=== PATIENT | male | born 1970 | race Caucasian/White ===

== ENCOUNTER 2018-02-26 14:30 | Emergency (ER) | payer OTHER ==
[~2018-02-26] VITALS: Ht 172.7 cm; Wt 74.8 kg
[2018-02-26 15:00] LABS: EOSINOPHILS % (AUTO) 4.5 % (0.0-6.0); HEMATOCRIT 40 % (39-51); LYMPHOCYTES % (AUTO) 34.7 % (20.0-44.0); MEAN CORPUSCULAR HEMOGLOBIN 32 PG (26.0-33.0); MEAN CORPUSCULAR HGB CONC 35 g/dl (31.0-36.0); MEAN CORPUSCULAR VOLUME 92 fL (80-96); MONOCYTES % (AUTO) 7.6 % (2.0-12.0); NEUTROPHILS % (AUTO) 52.2 % (43.0-81.0); PLATELET COUNT (AUTO) 117 /CMM (150-450); RDW COEFFICIENT OF VARIATION 13.8 (11.5-15.0); RED BLOOD CELL COUNT(AUTO) 4.34 MIL/uL (4.5-6.0); WHITE BLOOD COUNT (AUTO) 4.2 K/uL (4.3-11.0)
[2018-02-26] MEDS ORDERED: IV NS 0.9% 1,000 ML BAG IV ONE (15:00)
--- NOTE | 2018-02-26 15:00 | NUR ---
[facility] S/P POSSIBLE OVERDOSE ON VISTARIL AND ETOH. PATIENT IS AWAKE AND ALERT,. NOT IN DISTRESS. SKIN IS WARM TO TOUCH AND NON DIAPHORETIC. PATIENT IS AFEBRILE. VSS
[2018-02-26 15:01] LABS: LYMPHOCYTES # (AUTO) 1.5 /CMM (0.8-4.8); MONOCYTES # (AUTO) 0.3 /CMM (0.1-1.30); NEUTROPHILS # (AUTO) 2.2 /CMM (1.8-8.9)
[2018-02-26 15:32] LABS: CALCIUM, SERUM 7.9 mg/dL (8.5-10.1); CREATININE 0.7 mg/dL (0.6-1.3); POTASSIUM 3.7 mmol/L (3.5-5.1)
--- NOTE | 2018-02-26 17:04 | NUR ---
Patient is resting comfortably in bed with eyes closed. Easily aroused. VSS
--- NOTE | 2018-02-26 18:05 | NUR ---
IV ACCESS REMAINS INTACT ON LAC 20
--- NOTE | 2018-02-26 18:05 | NUR ---
Patient is resting comfortably in bed with eyes closed. Easily aroused. VSS
--- NOTE | 2018-02-26 18:12 | NUR ---
Patient is resting comfortably in bed with eyes closed. Easily aroused. VSS
--- NOTE | 2018-02-26 19:10 | NUR ---
REPORT RECEIVED FROM PIYUSH HUYNH FOR DARRYN.
--- NOTE | 2018-02-26 19:13 | NUR ---
REPORT GIVEN TO PIYUSH GRAVES
--- NOTE | 2018-02-26 22:13 | NUR ---
IV removed. Catheter intact and site benign. Pressure and 4x4 applied to site. No bleeding noted. Patient discharged to home in stable condition. Written and verbal after care instructions given. Patient verbalizes understanding of instruction. Patient is awake and alert to self, day, and place. Patient ambulatory with a steady gait.
[2018-02-26 22:14] VITALS: BP 119/74
== END 2018-02-26 22:15 | disposition home or self-care (01) ==
LOC: ER 14:32
DX: T51.8X1A Toxic effect of other alcohols, accidental (unintentional), initial encounter (principal); F32.9 Major depressive disorder, single episode, unspecified; Y92.89 Other specified places as the place of occurrence of the external cause
CPT/HCPCS: 36415; 80048-TC; 85025-TC; A4606; J7030; Z7610

== ENCOUNTER 2018-10-26 16:16 | Emergency (ER) | payer OTHER ==
[~2018-10-26] VITALS: Ht 172.7 cm; Wt 113.4 kg
[~2018-10-26 16:16] MED LIST: FOLI1TAB16 PO; THIA100T13 PO
--- NOTE | 2018-10-26 16:18 | NUR ---
OPAL, FOUND HIM STANDING IN THE MIDDLE OF THE STREET. TOOKN 30-40CAPS OF GABAPENTIN, TO ER BED 15, HOOKED TO MONITOR, AWAITING MD PATRICIA
--- NOTE | 2018-10-26 16:18 | NUR ---
DR VILLANUEVA AT BEDSIDE
[2018-10-26] MEDS ORDERED: diphenhydrAMINE HCL 50 MG/ML VIAL IV ONE (16:30)
[2018-10-26] MEDS ORDERED: LORAZEPAM INJ 2 MG/ML VIAL IVP ONE (16:30)
[2018-10-26] MEDS ORDERED: HALOPERIDOL LACTATE INJ 5 MG/ML VIAL IM ONE (16:30)
[2018-10-26] MEDS ORDERED: IV NS 0.9% 1,000 ML BAG IV ONE (16:30)
[2018-10-26 16:40] LABS: BASOPHILS % (AUTO) 0.8 % (0.0-2.0); EOSINOPHILS % (AUTO) 1.6 % (0.0-6.0); HEMATOCRIT 49 % (39-51); HEMOGLOBIN 16.6 g/dL (13.5-17.5); LYMPHOCYTES # (AUTO) 1.7 /CMM (0.8-4.8); LYMPHOCYTES % (AUTO) 40.9 % (20.0-44.0); MEAN CORPUSCULAR HGB CONC 34 g/dl (31.0-36.0); MEAN CORPUSCULAR VOLUME 98 fL (80-96); MONOCYTES # (AUTO) 0.4 /CMM (0.1-1.30); MONOCYTES % (AUTO) 9.4 % (2.0-12.0); NEUTROPHILS % (AUTO) 47.3 % (43.0-81.0); PLATELET COUNT (AUTO) 186 /CMM (150-450); RED BLOOD CELL COUNT(AUTO) 5.05 MIL/uL (4.5-6.0); WHITE BLOOD COUNT (AUTO) 4.1 K/uL (4.3-11.0)
[2018-10-26] MEDS ORDERED: diphenhydrAMINE HCL 50 MG/ML VIAL ONE (16:42)
[2018-10-26] MEDS ORDERED: HALOPERIDOL LACTATE INJ 5 MG/ML VIAL ONE (16:42)
[2018-10-26] MEDS ORDERED: LORAZEPAM INJ 2 MG/ML VIAL ONE (16:43)
[2018-10-26 16:50] LABS: CALCIUM, SERUM 8.3 mg/dL (8.5-10.1); CARBON DIOXIDE 24 mmol/L (21-32); CHLORIDE 105 mmol/L (98-107); CREATININE 0.7 mg/dL (0.6-1.3); GLUCOSE 99 mg/dL (74-106); POTASSIUM 3.5 mmol/L (3.5-5.1); SODIUM SERUM 143 mmol/L (136-145); UREA NITROGEN, BLOOD 10 mg/dL (7-18)
[2018-10-26 17:01] LABS: ALANINE AMINOTRANSFERASE 32 U/L (12-78); ALBUMIN 3.9 g/dL (3.4-5.0); ALCOHOL, BLOOD 372 mg/dL (0-0); ALKALINE PHOSPHATASE 50 U/L (46-116); ASPARTATE AMINOTRANSFERASE 31 U/L (15-37); BILIRUBIN,DIRECT 0.1 mg/dL (0.0-0.2); BILIRUBIN,TOTAL 0.2 mg/dL (0.2-1.0); TOTAL PROTEIN, SERUM 7.6 g/dL (6.4-8.2)
[2018-10-26 17:02] LABS: ACETAMINOPHEN < 2 ug/ml (10-30); SALICYLATE < 2.8 mg/dL (2.8-20.0)
[2018-10-26 17:17] LABS: CREATINE KINASE, TOTAL 252 U/L (39-308)
[2018-10-26 17:42] LABS: APPEARANCE,URINE Clear (CLEAR); BILIRUBIN,URINE Negative (NEGATIVE); BLOOD, URINE Negative Ery/uL (NEGATIVE); COLOR,URINE Yellow (YELLOW); KETONES,URINE Trace (NEGATIVE); LEUKOCYTE ESTERASE ,URINE Negative (NEGATIVE); NITRITE, URINE Negative (NEGATIVE); PROTEIN,URINE Negative (NEGATIVE); UGLUCOSE Negative (NEGATIVE); UROBILINOGEN,URINE 0.2 EU/dL (0.2)
[2018-10-26 17:58] LABS: BACTERIA,URINE Few /HPF (None Seen); RBC,URINE 0-2 /HPF (0-2); SQUAMOUS EPITHELIAL CELL,UR Few /HPF (None Seen); WBC,URINE 0-2 /HPF (0-3)
--- NOTE | 2018-10-26 18:00 | NUR ---
PT COMFORTABLY ASLEEP IN BED, HOOKED TO MONITOR, WILL CONT TO MONIOTR
--- NOTE | 2018-10-26 18:30 | NUR ---
PT SNORING, STILL ASLEEP, PT SHOWING SIGNS OF SLEEP APNEA, MADE MD AWARE. MD ORDERED VENTI MASK AT 40%, OXYGEN @ 12LPM. HOB ELEVATED AT 45 DEGREES. KEPT COMFORTABLE. SITTER AT BEDSIDE
--- NOTE | 2018-10-26 19:22 | NUR ---
PT STILL ASLEEP. SNORING LOUDLY. HOB KEPT ELEVATED. SITTER AT BEDSIDE. HOOKED TO [facility]. SITTER AT BEDSIDE.
--- NOTE | 2018-10-26 22:50 | NUR ---
PT ASLEEP. SNORING LOUDLY. ON VENTI MASK 40% 12LPM OXYGEN. HOB KEPT ELEVATED. SITTER AT BEDSIDE. HOOKED TO MONITOR.
--- NOTE | 2018-10-26 23:46 | NUR ---
PT STILL ASLEEP. SNORING LOUDLY. ON VENTI MASK AT 40%, 12 LPM OF OXYGEN. HOB KEPT ELEVATED. SITTER AT BEDSIDE. [facility] WILL CONTINUE TO MONITOR.
--- NOTE | 2018-10-27 00:06 | NUR ---
PT AWAKE, A&O x 4, MADE MD AWARE.
--- NOTE | 2018-10-27 00:18 | NUR ---
DR BARNES AT BEDSIDE
--- NOTE | 2018-10-27 00:20 | NUR ---
TOVA ANTONIO AT BEDSIDE FOR EVAL.
--- NOTE | 2018-10-27 00:39 | NUR ---
PROVIDED WITH SANDWICH AND WATER, PT TOLERATING PO WELL
--- NOTE | 2018-10-27 00:45 | NUR ---
PT ABLE TO SIT AT BEDSIDE. PT NOT ABLE TO STAND UP ALONE. ALSO FEELING NAUSEOUS WHEN TRIES TO STAND UP. MADE MD AWARE.
--- NOTE | 2018-10-27 01:14 | NUR ---
PT WENT TO THE RESTROOM, UNSTEADY GAIT, FEELING DIZZY WHILE AMBULATING, SITTER BEHIND FOR SUPPORT. MADE AWARE
--- NOTE | 2018-10-27 02:22 | NUR ---
PT ASLEEP IN BED,EASILY AROUSABLE BY VOICE. HOOKED TO [employer]. O2 SATURATION AT 95%.
--- NOTE | 2018-10-27 02:25 | NUR ---
REPORT GIVEN TO VIDAL PICKETT FOR DARRYN
--- NOTE | 2018-10-27 02:41 | NUR ---
PT PLACED ON 6L SIMPLE MASK. Patient is resting comfortably in bed with eyes closed. Easily aroused.
[2018-10-27] MEDS ORDERED: LORAZEPAM INJ 2 MG/ML VIAL IV ONE (03:00)
[2018-10-27] MEDS ORDERED: LORAZEPAM INJ 2 MG/ML VIAL ONE (03:00)
[2018-10-27] MEDS ORDERED: IV D5/ 0.9% NACL 1,000 ML IV ONE (03:02)
--- NOTE | 2018-10-27 04:20 | NUR ---
Patient is resting comfortably in bed with eyes closed. Easily aroused.
[2018-10-27 05:05] VITALS: BP 115/58
--- NOTE | 2018-10-27 05:11 | NUR ---
PT AOX4 AMBULATORY WITH STEADY GAIT. PT TO [facility]. NOTIFIED.
--- NOTE | 2018-10-27 05:29 | NUR ---
IV removed. Catheter intact and site benign. Pressure and 4x4 applied to site. No bleeding noted.Patient discharged to home in stable condition. Written and verbal after care instructions given. Patient verbalizes understanding of instruction. PT AMBULATORY WITH STEADY GAIT.
== END 2018-10-27 06:00 | disposition home or self-care (01) ==
LOC: ER 16:17
DX: R45.851 Suicidal ideations (principal); F10.129 Alcohol abuse with intoxication, unspecified; I10 Essential (primary) hypertension; Z79.899 Other long term (current) drug therapy
CPT/HCPCS: 36415; 71045-TC; 80048-TC; 80076-TC; 80305; 81000-TC; 82550-TC; 84443-TC; 85025-TC; G0480; J1200; J1630; J2060; J7030; J7042

== ENCOUNTER 2018-11-07 16:13 | Emergency (ER) | payer OTHER ==
[~2018-11-07] VITALS: Ht 177.8 cm; Wt 103.9 kg
--- NOTE | 2018-11-07 16:13 | NUR ---
PT [id number] FROM [address] STRE[address],REPORT STS CALLED 911 AND WANTS TO KILL SELF. PT ADMITS TO TAKE 5 GABAPENTIN W/ VODKA. DENIES SI. PT IS AAOX3, NOT IN RESPIRATORY DISTRESS, HOOKED TO MONITOR, KEPT RESTED AND COMFORTABLE.
--- NOTE | 2018-11-07 16:15 | NUR ---
SEEN AND EXAMINED BY DR. VILLANUEVA.
--- NOTE | 2018-11-07 16:20 | NUR ---
ER PHLEB AT BEDSIDE FOR BLOOD DRAW.
[2018-11-07 16:40] LABS: BASOPHILS # (AUTO) 0.3 /CMM (0.0-0.2); BASOPHILS % (AUTO) 4.3 % (0.0-2.0); EOSINOPHILS % (AUTO) 1.9 % (0.0-6.0); HEMATOCRIT 50 % (39-51); HEMOGLOBIN 17.1 g/dL (13.5-17.5); LYMPHOCYTES # (AUTO) 2.1 /CMM (0.8-4.8); LYMPHOCYTES % (AUTO) 31.7 % (20.0-44.0); MEAN CORPUSCULAR HGB CONC 34 g/dl (31.0-36.0); MEAN CORPUSCULAR VOLUME 99 fL (80-96); MONOCYTES # (AUTO) 0.5 /CMM (0.1-1.30); MONOCYTES % (AUTO) 7.9 % (2.0-12.0); NEUTROPHILS # (AUTO) 3.6 /CMM (1.8-8.9); NEUTROPHILS % (AUTO) 54.2 % (43.0-81.0); PLATELET COUNT (AUTO) 288 /CMM (150-450); WHITE BLOOD COUNT (AUTO) 6.6 K/uL (4.3-11.0)
--- NOTE | 2018-11-07 16:40 | NUR ---
URINAL GIVEN BUT UNABLE TO PROVIDE URINE SPECIMEN.
[2018-11-07 16:50] LABS: CALCIUM, SERUM 8.6 mg/dL (8.5-10.1); CARBON DIOXIDE 25 mmol/L (21-32); CHLORIDE 102 mmol/L (98-107); CREATININE 0.7 mg/dL (0.6-1.3); GLUCOSE 88 mg/dL (74-106); SODIUM SERUM 137 mmol/L (136-145); UREA NITROGEN, BLOOD 10 mg/dL (7-18)
[2018-11-07 16:57] LABS: ALANINE AMINOTRANSFERASE 34 U/L (12-78); ALBUMIN 3.9 g/dL (3.4-5.0); ALCOHOL, BLOOD 333 mg/dL (0-0); ALKALINE PHOSPHATASE 53 U/L (46-116); ASPARTATE AMINOTRANSFERASE 33 U/L (15-37); BILIRUBIN,DIRECT 0.1 mg/dL (0.0-0.2); BILIRUBIN,TOTAL 0.3 mg/dL (0.2-1.0); TOTAL PROTEIN, SERUM 7.7 g/dL (6.4-8.2)
[2018-11-07 16:58] LABS: ACETAMINOPHEN < 10 ug/ml (10-30); SALICYLATE 1.6 mg/dL (2.8-20.0)
[2018-11-07 19:10] LABS: APPEARANCE,URINE Clear (CLEAR); BILIRUBIN,URINE Negative (NEGATIVE); BLOOD, URINE Negative Ery/uL (NEGATIVE); COLOR,URINE Yellow (YELLOW); KETONES,URINE Trace (NEGATIVE); LEUKOCYTE ESTERASE ,URINE Negative (NEGATIVE); NITRITE, URINE Negative (NEGATIVE); PH,URINE 5.5 (5.0-8.0); PROTEIN,URINE 30 mg/dl (NEGATIVE); UGLUCOSE Negative (NEGATIVE); UROBILINOGEN,URINE 0.2 EU/dL (0.2)
[2018-11-07 19:22] LABS: BACTERIA,URINE None seen /HPF (None Seen); RBC,URINE NONE SEEN /HPF (0-2); WBC,URINE NONE SEEN /HPF (0-3)
[2018-11-07 19:23] LABS: MUCUS,URINE Few /LPF (None Seen); SQUAMOUS EPITHELIAL CELL,UR None Seen /HPF (None Seen)
--- NOTE | 2018-11-07 19:51 | NUR ---
PT REFUSED TO SIGN D/C PAPERS; WALKED OUT OF ER, AMBULATORY WITH STEADY GAIT; VSS; NAD NOTED
[2018-11-07 19:52] VITALS: BP 159/89
== END 2018-11-07 19:54 | disposition home or self-care (01) ==
LOC: ER 16:18
DX: F10.129 Alcohol abuse with intoxication, unspecified (principal); I10 Essential (primary) hypertension; Y90.8 Blood alcohol level of 240 mg/100 ml or more
CPT/HCPCS: 36415; 80048; 80076; 80305; 80307; 80329; 81001; 82962; 85025; 99283; G0480; 81000-TC

== ENCOUNTER 2018-11-12 08:24 | Emergency (ER) | payer OTHER ==
[~2018-11-12] VITALS: Ht 177.8 cm; Wt 102.1 kg
[2018-11-12 08:51] LABS: BASOPHILS # (AUTO) 0.1 /CMM (0.0-0.2); BASOPHILS % (AUTO) 1.3 % (0.0-2.0); EOSINOPHILS % (AUTO) 1.4 % (0.0-6.0); HEMATOCRIT 47 % (39-51); HEMOGLOBIN 16.1 g/dL (13.5-17.5); LYMPHOCYTES # (AUTO) 1.3 /CMM (0.8-4.8); LYMPHOCYTES % (AUTO) 24.6 % (20.0-44.0); MEAN CORPUSCULAR HGB CONC 34 g/dl (31.0-36.0); MEAN CORPUSCULAR VOLUME 98 fL (80-96); MONOCYTES # (AUTO) 0.6 /CMM (0.1-1.30); MONOCYTES % (AUTO) 12.1 % (2.0-12.0); NEUTROPHILS # (AUTO) 3.1 /CMM (1.8-8.9); NEUTROPHILS % (AUTO) 60.6 % (43.0-81.0); PLATELET COUNT (AUTO) 179 /CMM (150-450); RED BLOOD CELL COUNT(AUTO) 4.82 MIL/uL (4.5-6.0); WHITE BLOOD COUNT (AUTO) 5.1 K/uL (4.3-11.0)
[2018-11-12] MEDS ORDERED: PANTOPRAZOLE 40 MG VIAL ONE (08:55)
[2018-11-12] MEDS ORDERED: LORAZEPAM INJ 2 MG/ML VIAL ONE (08:56)
[2018-11-12 08:57] LABS: CALCIUM, SERUM 8.1 mg/dL (8.5-10.1); CREATININE 0.8 mg/dL (0.6-1.3); POTASSIUM 3.6 mmol/L (3.5-5.1)
[2018-11-12] MEDS ORDERED: LORAZEPAM INJ 2 MG/ML VIAL IV ONE (09:00)
[2018-11-12] MEDS ORDERED: IV NS 0.9% 1,000 ML BAG IV ONE ×2 (09:00→12:30)
[2018-11-12] MEDS ORDERED: PANTOPRAZOLE 40 MG VIAL IV ONE (09:00)
[2018-11-12 09:03] LABS: ALBUMIN 3.5 g/dL (3.4-5.0); BILIRUBIN,DIRECT 0.3 mg/dL (0.0-0.2); BILIRUBIN,TOTAL 0.9 mg/dL (0.2-1.0); TOTAL PROTEIN, SERUM 6.4 g/dL (6.4-8.2)
--- NOTE | 2018-11-12 09:53 | NUR ---
Social service consult requested by Dr. Bello for alcohol resources. Pt. is a 48 year old male who came to [facility] for nausea due to drinking alcohol. CHAVA met with pt. bedside. Pt. is alert and oriented x 4. Pt's clothing appear disheveled. Pt. had his shirt up exposing his belly. Pt. states he lives at his friend's Miguelina's house located in [place]. Pt. states he didn't have Miguelina's place to go to he would be homeless. Pt. has insight regarding his alcoholism. Pt. states he has been drinking for years. Pt. was sober for a few years and then relapsed. Pt. stated he lost his job, got on Medi-chay and everything went downhill from there. Pt. was at [facility] last February/March but left the facility without completing the program because he had a disagreement with a staff. Pt. states he has anxiety and takes Gabapentin as needed but doesn't really like it. He takes it to help him sleep. Pt. has family in [facility] who he stated, " Put up with me for a long time." CHAVA encouraged pt. to attend alcohol rehabilitation program and gave him the following resources: [facility] Substance Abuse Self-helpline ([facility]) Substance Abuse Contact number . Call the hotline and the ingot car operator will screen and link individual to an appropriate program. Must have Medi-chay or be Med-chay eligible. [facility] [id number] [place] [address] [place] [address] Appointment needed Intake at 8.00 am but this does not mean acceptance [facility] ([place] based) [address] [facility] [place] [address] (Six months program and need to work for 8 hrs per day while in treatment) [facility] (No insurance required) [address] [place] [address] [address] Closed on Thursday Open Thursday through Thursday 9 am -6 pm Thursday 10am 5 pm Closed on Thursday [facility] [phone] [place] [phone] Prefer phone calls. They do allow walk-ins but prefer appointments. No other social service needs are requested at this time. CHAVA updated JUAN Booth and Dr. Bello regarding giving pt. alcohol resources.
--- NOTE | 2018-11-12 11:00 | NUR ---
ASSUMED CARE FOR THIS PT; PT C/O N/V D/T ETOH ABUSE; PT AAOX4, PT ON MONITOR, VSS, NAD NOTED.
[2018-11-12] MEDS ORDERED: DIAZEPAM 5 MG/ML 2 ML DISP.SYRIN IV ONE (12:30)
[2018-11-12] MEDS ORDERED: DIAZEPAM 5 MG TABLET ONE (12:31)
[2018-11-12] MEDS ORDERED: DIAZEPAM 5 MG TABLET PO ONE (13:00)
--- NOTE | 2018-11-12 13:53 | NUR ---
Patient discharged to home in stable condition. Written and verbal after care instructions given. Patient verbalizes understanding of instruction. IV removed. Catheter intact and site benign. Pressure and 4x4 applied to site. No bleeding noted.
[2018-11-12 13:54] VITALS: BP 144/90
== END 2018-11-12 13:56 | disposition home or self-care (01) ==
LOC: ER 08:26
DX: F10.229 Alcohol dependence with intoxication, unspecified (principal); K92.2 Gastrointestinal hemorrhage, unspecified; I10 Essential (primary) hypertension; Y90.9 Presence of alcohol in blood, level not specified
CPT/HCPCS: 36415; 80048; 80076; 83690; 85025; 85730; 96361; 96374; 96375; 99283; C9113; J2060; J7030 ×2

== ENCOUNTER 2019-01-06 12:25 | Emergency (ER) | payer OTHER ==
[~2019-01-06] VITALS: Ht 175.3 cm; Wt 100.2 kg
[2019-01-06] MEDS ORDERED: OLANZAPINE 10 MG VIAL IM ONE (12:30)
--- NOTE | 2019-01-06 12:40 | NUR ---
[employer] AT BEDSIDE
--- NOTE | 2019-01-06 12:41 | NUR ---
BIBA RA 102 "Alcohol/ETOH - was sitting on the sidewalk intoxicated was threatening to kill himself". INITIALLY CALM ON ARRIVAL, BEHAVIOR ESCALATED WHEN ATTEMPTING TO ROOM HIM. MEDICS AND STAFF SPOKE CALMLY AND ENCOURAGED HIM TO GO TO THE [facility]. PT IS AMBULATORY, SLIGHTLY TACHYCARDIC, RR EVEN AND UNLABORED ON RA. NO MEDICAL COMPLAINTS AT THIS TIME. TO ER BED 7 AND READY FOR EVAL. Addendum: 01/06/19 at 1317 by SANTOS DENIES SI/HI AT THIS TIME
[2019-01-06 13:01] LABS: BASOPHILS % (AUTO) 0.4 % (0.0-2.0); EOSINOPHILS % (AUTO) 2.2 % (0.0-6.0); HEMATOCRIT 47 % (39-51); HEMOGLOBIN 16.3 g/dL (13.5-17.5); LYMPHOCYTES # (AUTO) 2.3 /CMM (0.8-4.8); LYMPHOCYTES % (AUTO) 35.4 % (20.0-44.0); MEAN CORPUSCULAR HGB CONC 35 g/dl (31.0-36.0); MEAN CORPUSCULAR VOLUME 95 fL (80-96); MONOCYTES # (AUTO) 0.4 /CMM (0.1-1.30); MONOCYTES % (AUTO) 6.3 % (2.0-12.0); NEUTROPHILS # (AUTO) 3.7 /CMM (1.8-8.9); NEUTROPHILS % (AUTO) 55.7 % (43.0-81.0); PLATELET COUNT (AUTO) 198 /CMM (150-450); RED BLOOD CELL COUNT(AUTO) 4.92 MIL/uL (4.5-6.0); WHITE BLOOD COUNT (AUTO) 6.6 K/uL (4.3-11.0)
--- NOTE | 2019-01-06 13:05 | NUR ---
URINE COLLECTED VIA STRAIGHT CATH PER MD AND SENT TO STAT LAB
[2019-01-06 13:11] LABS: APPEARANCE,URINE Clear (CLEAR); BILIRUBIN,URINE Negative (NEGATIVE); BLOOD, URINE Negative Ery/uL (NEGATIVE); COLOR,URINE Yellow (YELLOW); KETONES,URINE Negative (NEGATIVE); LEUKOCYTE ESTERASE ,URINE Negative (NEGATIVE); NITRITE, URINE Negative (NEGATIVE); PROTEIN,URINE Negative (NEGATIVE); UGLUCOSE Negative (NEGATIVE); UROBILINOGEN,URINE 0.2 EU/dL (0.2)
[2019-01-06 13:12] LABS: CALCIUM, SERUM 8.3 mg/dL (8.5-10.1); CARBON DIOXIDE 26 mmol/L (21-32); CHLORIDE 106 mmol/L (98-107); CREATININE 0.7 mg/dL (0.6-1.3); GLUCOSE 95 mg/dL (74-106); POTASSIUM 3.9 mmol/L (3.5-5.1); SODIUM SERUM 144 mmol/L (136-145); UREA NITROGEN, BLOOD 13 mg/dL (7-18)
--- NOTE | 2019-01-06 13:16 | NUR ---
Marlene friedman in [facility] - 01/06/19 at 1317 by SANTOS CANDICE MOTA/XAVIER AT THIS TIME
[2019-01-06 13:19] LABS: ALANINE AMINOTRANSFERASE 25 U/L (12-78); ALBUMIN 3.7 g/dL (3.4-5.0); ALCOHOL, BLOOD 348 mg/dL (0-0); ALKALINE PHOSPHATASE 46 U/L (46-116); ASPARTATE AMINOTRANSFERASE 21 U/L (15-37); BILIRUBIN,DIRECT 0.1 mg/dL (0.0-0.2); BILIRUBIN,TOTAL 0.1 mg/dL (0.2-1.0); TOTAL PROTEIN, SERUM 7.1 g/dL (6.4-8.2)
[2019-01-06 13:20] LABS: ACETAMINOPHEN < 2 ug/ml (10-30); SALICYLATE 2.3 mg/dL (2.8-20.0)
--- NOTE | 2019-01-06 13:52 | NUR ---
PT ASLEEP IN BED. EASILY AROUSED. VSS. WILL CONT TO MONITOR.
--- NOTE | 2019-01-06 15:22 | NUR ---
PT STILL ASLEEP. WAS DESATTING AT 88%. PLACED ON 2L O2. NOW AT 96%
--- NOTE | 2019-01-06 17:36 | NUR ---
PT ASLEEP IN BED, EASILY AROUSES. NO COMPLAINTS AT THIS TIME. VSS. WILL CONT TO MONITOR.
--- NOTE | 2019-01-06 19:11 | NUR ---
Patient is resting comfortably in bed. Easily aroused. VSS
--- NOTE | 2019-01-06 20:30 | NUR ---
Patient discharged to home in stable condition. Written and verbal after care instructions given. Patient verbalizes understanding of instruction.
[2019-01-06 22:30] VITALS: BP 111/70
== END 2019-01-06 20:30 | disposition home or self-care (01) ==
LOC: ER 12:30
DX: T42.6X1A Poisoning by other antiepileptic and sedative-hypnotic drugs, accidental (unintentional), initial encounter (principal); F10.129 Alcohol abuse with intoxication, unspecified; I10 Essential (primary) hypertension; E66.9 Obesity, unspecified; Y90.8 Blood alcohol level of 240 mg/100 ml or more; Y92.89 Other specified places as the place of occurrence of the external cause
CPT/HCPCS: 36415; 51701; 80048; 80076; 80305; 80307; 80329; 81001; 85025; 96372; 99284; G0480; 81000-TC; J3490

== ENCOUNTER 2019-01-09 06:42 | Emergency (ER) ==
[~2019-01-09] VITALS: Ht 185.4 cm; Wt 95.3 kg
[~2019-01-09 06:42] MED LIST changes: +OLANZAPINE 10 MG VIAL IM ONE
[2019-01-09 06:46] VITALS: BP 156/88
--- NOTE | 2019-01-09 06:46 | NUR ---
PT [id number] FROM [facility] FOR ETOH, AOX2. BS 111. PT IS AAOX4, NOT IN RESPIRATORY DISTRESS, KEPT RESTED AND COMFORTABLE, WILL CONTINUE TO MONITOR.
[2019-01-09] MEDS ORDERED: ONDANSETRON HCL/PF 4 MG/2 ML VIAL IVP ONE (07:00)
[2019-01-09] MEDS ORDERED: IV NS 0.9% 1,000 ML BAG IV ONE (07:00)
[2019-01-09] MEDS ORDERED: THIAMINE HCL 100 MG TABLET PO ONE (07:00)
[2019-01-09] MEDS ORDERED: ONDANSETRON HCL/PF 4 MG/2 ML VIAL ONE (07:21)
[2019-01-09] MEDS ORDERED: THIAMINE HCL 100 MG TABLET ONE (07:21)
--- NOTE | 2019-01-09 07:29 | NUR ---
URINAL GIVEN BUT UNABLE TO PROVIDE URINE SPECIMEN.
--- NOTE | 2019-01-09 07:30 | NUR ---
REPORT GIVEN TO PIYUSH COLEMAN FOR DARRYN, WITH ONGOING IV NS.
[2019-01-09 07:34] LABS: BASOPHILS # (AUTO) 0.1 /CMM (0.0-0.2); EOSINOPHILS % (AUTO) 2.4 % (0.0-6.0); HEMATOCRIT 47 % (39-51); HEMOGLOBIN 16.2 g/dL (13.5-17.5); LYMPHOCYTES % (AUTO) 38.6 % (20.0-44.0); MEAN CORPUSCULAR HGB CONC 35 g/dl (31.0-36.0); MEAN CORPUSCULAR VOLUME 95 fL (80-96); MONOCYTES # (AUTO) 0.3 /CMM (0.1-1.30); MONOCYTES % (AUTO) 6.5 % (2.0-12.0); NEUTROPHILS # (AUTO) 2.6 /CMM (1.8-8.9); NEUTROPHILS % (AUTO) 50.5 % (43.0-81.0); PLATELET COUNT (AUTO) 204 /CMM (150-450); RED BLOOD CELL COUNT(AUTO) 4.96 MIL/uL (4.5-6.0); WHITE BLOOD COUNT (AUTO) 5.1 K/uL (4.3-11.0)
[2019-01-09 07:41] LABS: CALCIUM, SERUM 7.9 mg/dL (8.5-10.1); CARBON DIOXIDE 27 mmol/L (21-32); CHLORIDE 109 mmol/L (98-107); CREATININE 0.7 mg/dL (0.6-1.3); GLUCOSE 110 mg/dL (74-106); POTASSIUM 3.8 mmol/L (3.5-5.1); SODIUM SERUM 146 mmol/L (136-145); UREA NITROGEN, BLOOD 13 mg/dL (7-18)
[2019-01-09 07:49] LABS: ALANINE AMINOTRANSFERASE 31 U/L (12-78); ALBUMIN 3.5 g/dL (3.4-5.0); ALCOHOL, BLOOD 380 mg/dL (0-0); ALKALINE PHOSPHATASE 45 U/L (46-116); ASPARTATE AMINOTRANSFERASE 30 U/L (15-37); BILIRUBIN,DIRECT 0.1 mg/dL (0.0-0.2); BILIRUBIN,TOTAL 0.2 mg/dL (0.2-1.0); TOTAL PROTEIN, SERUM 6.9 g/dL (6.4-8.2)
[2019-01-09 07:56] LABS: ACETAMINOPHEN < 2 ug/ml (10-30); SALICYLATE 1.9 mg/dL (2.8-20.0)
== END 2019-01-09 09:23 | disposition home or self-care (01) ==
LOC: ER 06:44
DX: R41.82 Altered mental status, unspecified (principal); F10.129 Alcohol abuse with intoxication, unspecified; I10 Essential (primary) hypertension; F31.9 Bipolar disorder, unspecified; Y90.8 Blood alcohol level of 240 mg/100 ml or more
CPT/HCPCS: 36415; 80048; 80076; 80307; 80329; 85025; 96361; 96374; 99283; G0480; J2405; J7030; J3490

== ENCOUNTER 2019-01-27 06:38 | Emergency (ER) | payer OTHER ==
[~2019-01-27] VITALS: Ht 180.3 cm; Wt 98.0 kg
[~2019-01-27 06:38] MED LIST changes: -OLANZAPINE 10 MG VIAL IM ONE
--- NOTE | 2019-01-27 06:50 | NUR ---
bib ambulance for c/o n/v for the past few days and epigastric pain for the last hour. reported has taken some ativa, alcohol and smoked last night. pmh of anxiety and umbilical hernia repair. pt not a very good historian. placed on a monitor and o2 at 2lpm via nc. vss. will cont to monitor,
[2019-01-27] MEDS ORDERED: ONDANSETRON HCL/PF 4 MG/2 ML VIAL IVP ONE (07:00)
[2019-01-27] MEDS ORDERED: IV NS 0.9% 1,000 ML BAG IV ONE (07:00)
[2019-01-27] MEDS ORDERED: ONDANSETRON HCL/PF 4 MG/2 ML VIAL ONE (07:03)
[2019-01-27 07:11] LABS: BASOPHILS # (AUTO) 0.1 /CMM (0.0-0.2); HEMATOCRIT 51 % (39-51); HEMOGLOBIN 17.6 g/dL (13.5-17.5); LYMPHOCYTES # (AUTO) 1.7 /CMM (0.8-4.8); LYMPHOCYTES % (AUTO) 19.9 % (20.0-44.0); MEAN CORPUSCULAR HGB CONC 34 g/dl (31.0-36.0); MEAN CORPUSCULAR VOLUME 94 fL (80-96); MONOCYTES # (AUTO) 0.4 /CMM (0.1-1.30); MONOCYTES % (AUTO) 5.1 % (2.0-12.0); NEUTROPHILS # (AUTO) 6.3 /CMM (1.8-8.9); PLATELET COUNT (AUTO) 292 /CMM (150-450); RED BLOOD CELL COUNT(AUTO) 5.45 MIL/uL (4.5-6.0); WHITE BLOOD COUNT (AUTO) 8.6 K/uL (4.3-11.0)
--- NOTE | 2019-01-27 07:14 | NUR ---
18G IV STARTED ON RAC. BLOOD DRAWN AND SENT TO THE LAB. MEDICATED ORDERED. WILL CONT TO MONITOR ,
[2019-01-27 07:20] LABS: CALCIUM, SERUM 8.4 mg/dL (8.5-10.1); CARBON DIOXIDE 22 mmol/L (21-32); CHLORIDE 103 mmol/L (98-107); CREATININE 0.7 mg/dL (0.6-1.3); GLUCOSE 103 mg/dL (74-106); POTASSIUM 3.7 mmol/L (3.5-5.1); SODIUM SERUM 141 mmol/L (136-145); UREA NITROGEN, BLOOD 13 mg/dL (7-18)
[2019-01-27 07:24] LABS: ALANINE AMINOTRANSFERASE 30 U/L (12-78); ALBUMIN 3.7 g/dL (3.4-5.0); ALKALINE PHOSPHATASE 52 U/L (46-116); ASPARTATE AMINOTRANSFERASE 23 U/L (15-37); BILIRUBIN,DIRECT 0.1 mg/dL (0.0-0.2); BILIRUBIN,TOTAL 0.3 mg/dL (0.2-1.0); TOTAL PROTEIN, SERUM 7.4 g/dL (6.4-8.2)
--- NOTE | 2019-01-27 07:43 | NUR ---
PATIENT RESTING ON BED COMFORTABLE. NO ACUTE DISTRESS. DENIES ANY PAIN OR DISCOMFORT. CONNECTED TO MONITOR.
[2019-01-27 08:31] VITALS: BP 133/85
--- NOTE | 2019-01-27 08:44 | NUR ---
IV removed. Catheter intact and site benign. Pressure and 4x4 applied to site. No bleeding noted.Patient discharged to home in stable condition. Written and verbal after care instructions given. Patient verbalizes understanding of instruction.
== END 2019-01-27 08:45 | disposition home or self-care (01) ==
LOC: ER 06:42
DX: R07.89 Other chest pain (principal); R19.7 Diarrhea, unspecified; I10 Essential (primary) hypertension; F31.9 Bipolar disorder, unspecified; F19.10 Other psychoactive substance abuse, uncomplicated; F10.10 Alcohol abuse, uncomplicated; R00.0 Tachycardia, unspecified; Y90.9 Presence of alcohol in blood, level not specified
CPT/HCPCS: 36415; 71045; 80048; 80076; 84484; 85025; 93005; 96361; 96374; 99284; J2405; J7030